=== PATIENT | female | born 1980 | race Caucasian/White ===

== ENCOUNTER 2017-06-06 14:30 | Emergency (ER) | payer OTHER ==
[2017-06-06 14:43] VITALS: RESP 18; TEMP 98.1; BMI 32.8
[2017-06-06 16:24] LABS: RBC URINE < 1 /hpf (0-3); URINE BACTERIA RARE (<OCC); URINE BILIRUBIN NEGATIVE (NEGATIVE); URINE BLOOD NEGATIVE (NEGATIVE); URINE COLOR Straw (YELLOW); URINE GLUCOSE (UA) NORMAL (Normal); URINE KETONE NEGATIVE (NEGATIVE); URINE LEUKOCYTE ESTERASE NEG Leu/uL (Negative); URINE PROTEIN NEGATIVE (NEGATIVE); URINE UROBILINOGEN NORMAL mg/dL (0.2-1.0); WBC URINE 1 /hpf (0-5)
[2017-06-06 16:31] LABS: BASO # 0.1 K/uL (0.0-0.2); BASO % 0.8 % (0.0-2.0); CHLORIDE 101 mmol/L (98-107); EOS # 0.2 K/uL (0.0-0.7); EOS % 1.7 % (0.0-4.0); HEMATOCRIT 35.6 % (34.0-47.0); LYMPH # 2.6 K/uL (1.0-4.3); LYMPH % 26.7 % (20.0-40.0); MEAN CELL VOLUME 87.4 fL (81.0-99.0); MEAN CORPUSCULAR HGB CONC 33.1 g/dL (33.0-37.0); MEAN PLATELET VOLUME 7.7 fL (7.2-11.7); MONO # 0.5 K/uL (0.0-0.8); MONO % 5.3 % (0.0-10.0); POTASSIUM 3.8 mmol/L (3.6-5.2); SODIUM 140 mmol/L (132-148); WHITE BLOOD COUNT 9.7 K/uL (4.8-10.8)
[2017-06-06 16:33] LABS: ALKALINE PHOSPHATASE 59 U/L (38-126); ALT/SGPT 22 U/L (9-52); AST/SGOT 14 U/L (14-36); BILIRUBIN,TOTAL 0.4 mg/dL (0.2-1.3); BLOOD UREA NITROGEN 12 mg/dL (7-17); CALCIUM 8.8 mg/dl (8.6-10.4); CARBON DIOXIDE 24 mmol/L (22-30); GFR AFRICAN-AMERICAN > 60; GLUCOSE,RANDOM 91 mg/dL (65-105); TOTAL PROTEIN 7.3 g/dL (6.3-8.3)
[2017-06-06 17:16] VITALS: BP 118/77; PULSE 85; O2SAT 98
--- NOTE | 2017-06-06 18:18 | C.PDOC ---
History Of Present Illness 36 y/o female presents to emergency department with complaint of palpitations. Patient initially reports history of TIA - when described, history of anxiety with numbness and tingling to face and fingers. Patient reports multiple episodes of palpitations and c/o hives to anterior chest earlier today. Otherwise, denies fever, chills, headache, nausea, vomiting, SOB, chest pain, or other associated symptoms. Time Seen by Provider: 06/06/17 15:22 Chief Complaint (Nursing): Palpitations History Per: Patient History/Exam Limitations: no limitations Onset/Duration Of Symptoms: Days Current Symptoms Are (Timing): Still Present Recent travel outside of the [place]: No Past Medical History Reviewed: Historical Data, Nursing Documentation, Vital Signs Vital Signs: Last Vital Signs Temp 98.1 F 06/06/17 17:16 Pulse 85 06/06/17 17:16 Resp 18 06/06/17 14:42 BP 118/77 06/06/17 17:16 Pulse Ox 98 06/06/17 18:48 - Medical History PMH: Asthma, Depression (POST DEPRESSION), TIA - [facility] CLOSED ENDOSCOPIC BIOPSY OF LARGE INTESTINE (05/06/14) Family History: States: Unknown Family Hx - Social History Hx Tobacco Use: No Hx Alcohol Use: Yes Hx Substance Use: No - Immunization History Hx Tetanus Toxoid Vaccination: No Hx Influenza Vaccination: No Hx Pneumococcal Vaccination: No Review Of Systems Except As Marked, All Systems Reviewed And Found Negative. Constitutional: Negative for: Fever, Chills Cardiovascular: Positive for: Palpitations. Negative for: Chest Pain Respiratory: Negative for: Cough, Shortness of Breath, Wheezing Gastrointestinal: Negative for: Nausea, Vomiting Musculoskeletal: Negative for: Neck Pain Skin: Positive for: Rash Neurological: Negative for: Weakness, Numbness, Headache, Dizziness Physical Exam - Physical Exam Appears: Non-toxic, No Acute Distress Skin: Warm, Dry, Rash (diffuse urticaria to anterior chest ) Head: Atraumatic, Normacephalic Eye(s): bilateral: Normal Inspection, PERRL, EOMI Oral Mucosa: Moist Chest: Symmetrical Cardiovascular: Rhythm Regular Respiratory: Normal Breath Sounds, No Rales, No Rhonchi, No Wheezing Gastrointestinal/Abdominal: Soft, No Tenderness, No Guarding, No Rebound Back: Normal Inspection Extremity: Normal ROM, Capillary Refill (< 2 sec.) Neurological/Psych: Oriented x3, Normal Speech, Normal Cognition ED Course And Treatment - Laboratory Results Result Diagrams: 06/06/17 16:18 06/06/17 16:18 O2 Sat by Pulse Oximetry: 98 (RA) Pulse Ox Interpretation: Normal Medical Decision Making Medical Decision Making: EKG and labs ordered, reviewed. EKG NSR, no acute ST or T wave elevations/depressions. Lab values within normal limits. On reassessment, patient is resting comfortably, and is in no acute distress, with improvement of symptoms. Patient instructed to take Benadryl at home, as discussed, and advised follow up with clinic/PMD within 1-2 days. Disposition Counseled Patient/Family Regarding: Diagnosis, Need For Followup, Rx Given - Disposition Disposition: HOME/ ROUTINE Disposition Time: 18:17 Condition: STABLE Prescriptions: DiphenhydrAMINE [Benadryl] 50 mg PO HS #10 cap Instructions: Palpitations (ED) Forms: General Discharge Instructions, [facility] (Chinese), Work Excuse - POA Present On Arrival: None - Clinical Impression Clinical Impression: Palpitations - Scribe Statement The provider has reviewed the documentation as recorded by the Scribe Dominic Adkins All medical record entries made by the Scribe were at my direction and personally dictated by me. I have reviewed the chart and agree that the record accurately reflects my personal performance of the history, physical exam, medical decision making, and the department course for this patient. I have also personally directed, reviewed, and agree with the discharge instructions and disposition. ED Procedural Sedation - Pre Anesthesia Assessment Chief Complaint: Palpitations - Pre-Procedure Airway Assessment ASA Criteria: 1 - Healthy, normal. 2 - Mild systemic disease (No functional limitations, mildline obesity, DM withot complications, Hypertention). 3 - Severe systemic disease (Some functional limitation, stable angina, morbid obesity, controlled COPD/Asthma/CHF). 4 - Sever systemic disease constant threat to life (Unstable angina, active symptoms of COPD/Asthma, CHF/ Hypertension. 5 - Moribund
--- NOTE | 2017-06-08 15:43 | CARD ---
APPROVED REPORT EKG Measurement Heart [id number] 132P31 [id number] <Conclusion> Sinus rhythm with marked sinus arrhythmia Otherwise normal ECG
--- NOTE | 2017-06-11 06:38 | CARD ---
APPROVED REPORT EKG Measurement Heart [id number] ME 172P29 [id number] <Conclusion> Normal sinus rhythm Normal ECG
== END 2017-06-06 18:47 | disposition home or self-care (01) ==
LOC: C.ER 14:30
DX: R00.2 Palpitations (principal)